=== PATIENT | male | born 1965 | race Caucasian/White ===

== ENCOUNTER 2022-10-02 09:52 | Outpatient (CLI) | payer MEDICAID, SELFPAY ==
--- NOTE | 2022-10-02 10:00 | CRLHL7_ITS ---
For Patients: As a result of the Century Cures Act, medical imaging exams and procedure reports are released immediately into your electronic medical record. You may view this report before your referring provider. If you have questions, please contact your health care provider. INDICATION: Otorrhea. Tinnitus. TECHNIQUE: Noncontrast CT images acquired through the temporal bones. COMPARISON: None. FINDINGS: Right side: The external auditory canal is widely patent. Thickened, retracted tympanic membrane with possible defect superiorly. Moderately severe opacification of the middle ear cavity including partial opacification of Prussak space, sinus tympani, and facial nerve recess. The scutum is blunted. The ossicles are intact. No evidence for otosclerosis. Normal morphology of the inner ear structures. Thinning and likely dehiscence of the superior semicircular canal roof. Severely opacified, sclerotic mastoid air cells. Left Side: The external auditory canal is widely patent. Mild tympanic membrane thickening. Mild opacification of the middle ear cavity, predominantly the hypotympanum. There is mild opacification of the sinus tympani. The ossicles and scutum are intact. No evidence for otosclerosis. Normal morphology of the inner ear structures. No semicircular canal dehiscence. Trace opacification of the mastoid air cells. Other: Lytd-qu-ulaxaoyr paranasal sinus mucosal thickening. Advanced multifocal dental disease including dental caries and periapical lucencies involving numerous teeth. IMPRESSION: Right side: 1. Moderately severe opacification of the middle ear cavity. The ossicles are intact and the scutum is blunted. The mastoid air cells are severely opacified and sclerotic. Thickened, retracted tympanic membrane with possible defect superiorly. 2. Thinning and likely dehiscence of the superior semicircular canal roof. Left side: 1. Mild opacification of the middle ear cavity, predominantly the hypotympanum. The ossicles and scutum are intact. Trace opacification of the mastoid air cells. Other: 1. Advanced multifocal dental disease including dental caries and periapical lucencies involving numerous teeth. Please note that all CT scans at this facility use dose modulation, iterative reconstruction, and/or weight-based dosing when appropriate to reduce radiation dose to as low as reasonably achievable. Dictated by Evert Sandhu MD @ 10/03/2022 12:16:00 PM (Electronically Signed)
== END 2022-10-02 09:53 | disposition home or self-care (01) ==
PROVIDERS: PCP Family Medicine; Visit Provider Otolaryngology
DX: H92.10 Otorrhea, unspecified ear (principal); K08.9 Disorder of teeth and supporting structures, unspecified
CPT/HCPCS: 70480

== ENCOUNTER 2023-02-08 17:26 | Outpatient (CLI) | payer MEDICAID, SELFPAY | END 2023-02-08 17:27 | disposition home or self-care (01) | LOC: AMB 02-28 11:27 | PROVIDERS: PCP Family Medicine; Visit Provider Family Medicine | DX: I46.9 Cardiac arrest, cause unspecified (principal) | CPT/HCPCS: A0429 ==